=== PATIENT | female | born 1935 | race Caucasian/White ===

== ENCOUNTER 2017-05-02 18:17 | Emergency (ER) | payer MEDICARE, BC ==
[2017-05-02 18:49] LABS: APPEARANCE,URINE Clear; BILIRUBIN,URINE NEGATIVE (NEGATIVE); COLOR,URINE Yellow; GLUCOSE, URINE (UA) NEGATIVE (NEGATIVE); KETONES,URINE NEGATIVE (NEGATIVE); LEUKOCYTE ESTERASE ,URINE TRACE (NEGATIVE); NITRATE,URINE NEGATIVE (NEGATIVE); OCCULT BLOOD,URINE NEGATIVE (NEG-TRACE); UROBILINOGEN,URINE 0.2 (0.2-1.0 EU)
[2017-05-02 18:57] LABS: BASOPHILS % (AUTO) 1 % (0-3); EOSINOPHILS % (AUTO) 5 % (0-9); HEMATOCRIT 38 % (35-47); MEAN CORPUSCULAR HGB CONC 34.8 gm/dl (32.0-36.0); MEAN CORPUSCULAR VOLUME 86 fL (81-99); MONOCYTES % (AUTO) 11.4 % (0-12); NEUTROPHILS % (AUTO) 57.6 % (37-80)
[2017-05-02 19:02] VITALS: RESP 20
[2017-05-02 19:06] LABS: RBC,URINE NEGATIVE (0-3AV/HPF); WBC,URINE 0-1 (0-5AV/HPF)
[2017-05-02 19:12] VITALS: TEMP 98
[2017-05-02 19:15] LABS: ALBUMIN 4.1 gm/dl (3.4-5.0); POTASSIUM 4.4 mMol/L (3.5-5.1)
[2017-05-02 19:29] VITALS: BP 119/73; PULSE 55; O2SAT 94
== END 2017-05-02 19:55 | disposition home or self-care (01) | DRG 948 ==
LOC: ED 18:17
DX: R41.0 Disorientation, unspecified (principal); G30.9 Alzheimer's disease, unspecified; F02.80 Dementia in other diseases classified elsewhere, unspecified severity, without behavioral disturbance, psychotic disturbance, mood disturbance, and anxiety
CPT/HCPCS: 36415; 80053; 81001; 85025; 99283; 99284

== ENCOUNTER 2017-10-15 12:53 | Observation (INO) | payer MEDICARE, BC ==
[2017-10-15] MEDS ORDERED: QUETIAPINE FUMARATE 25 MG TAB PO SCH (13:45)
[2017-10-15] MEDS ORDERED: QUETIAPINE FUMARATE 25 MG TAB ONE (13:50)
[2017-10-15] MEDS ORDERED: LORAZEPAM 0.5 MG TAB PO PRN (14:34)
[2017-10-15] MEDS ORDERED: LORAZEPAM 0.5 MG TAB PO ONE (17:47)
[2017-10-15] MEDS: TRAMADOL HYDROCHLORIDE 50 MG TAB PO SCH ×2 (19:34→21:22)
[2017-10-15] MEDS: QUETIAPINE FUMARATE 25 MG TAB PO SCH ×2 (19:34→21:22)
[2017-10-15] MEDS ORDERED: HALOPERIDOL LACTATE 5 MG/ML SOL IM PRN (21:01)
[2017-10-15] MEDS ORDERED: LORAZEPAM 2 MG/ML SOL IM PRN (21:01)
[2017-10-15 23:06] VITALS: PULSE 80
[2017-10-16] MEDS: FUROSEMIDE 40 MG TAB PO SCH ×2 (08:44→12:06)
[2017-10-16] MEDS: QUETIAPINE FUMARATE 25 MG TAB PO SCH (08:45)
[2017-10-16] MEDS: TRAMADOL HYDROCHLORIDE 50 MG TAB PO SCH (08:46)
[2017-10-16] MEDS ORDERED: METOPROLOL SUCCINATE 50 MG ER TAB PO SCH (09:00)
[2017-10-16] MEDS ORDERED: AMLODIPINE 5 MG TAB PO SCH (09:00)
[2017-10-16] MEDS ORDERED: ASPIRIN 325 MG TAB PO SCH (09:00)
[2017-10-16] MEDS ORDERED: METFORMIN HYDROCHLORIDE 500 MG TAB PO SCH (09:00)
[2017-10-16 09:34] VITALS: BP 123/76; RESP 20; TEMP 98.1; O2SAT 96
[2017-10-16] MEDS ORDERED: DIVALPROEX ECC 125 MG ECC PO SCH (21:00)
== END 2017-10-16 16:00 | disposition short-term general hospital (02) | DRG 57 ==
LOC: ED 12:53 → ACUTE CARE 14:25 → UNDOADMOB 14:27 → ACUTE CARE 14:27
PROVIDERS: ADMIT Family Medicine; ATTEND Family Medicine
DX: G30.1 Alzheimer's disease with late onset (principal); F02.81 Dementia in other diseases classified elsewhere, unspecified severity, with behavioral disturbance; I50.9 Heart failure, unspecified; I48.91 Unspecified atrial fibrillation
CPT/HCPCS: 82962; 94762; 99282; J1630; J2060; A9270; A9270-GY